=== PATIENT | female | born 1985 | race Caucasian/White ===

== ENCOUNTER 2020-01-15 21:32 | Emergency (ER) | payer OTHER, SELFPAY ==
[2020-01-15 21:34] VITALS: BP 174/97; PULSE 111; RESP 16; O2SAT 100; BMI 25.8
--- NOTE | 2020-01-15 21:40 | HMH.EDGENADL ---
ED Disposition Clinical Impression: Neuropraxia of left upper extremity Qualifiers: Encounter type: initial encounter Qualified Code(s): S44.92XA - Injury of unspecified nerve at shoulder and upper arm level, left arm, initial encounter Left shoulder strain Qualifiers: Encounter type: initial encounter Qualified Code(s): S46.912A - Strain of unspecified muscle, fascia and tendon at shoulder and upper arm level, left arm, initial encounter Disposition: Home, Self-Care Condition on Discharge: Good Instructions: DI for Shoulder Pain Additional Instructions: Follow-up with Dr. Rodriguez at [facility]. Call Friday to make appointment. Tramadol or acetaminophen as needed for pain. Ice for swelling and pain. Sling until follow-up. Additional instructions for CONTROLLED SUBSTANCES: You have been prescribed a medication that is a controlled substance. Controlled substances include pain medications known as opiates and sedative nerve medications known as benzodiazepines. Tramadol, fioricet, and gabapentin are also controlled substances. Some common opiates include: Codeine (such as Tylenol #3) Hydrocodone (Vicodin, Lortab, Lorcet, [place]) Oxycodone (Percocet, Percodan, Oxycodone, Oxy IR) Some common benzodiazepines include: Diazepam (Valium) Lorazepam (Ativan) Alprazolam (Xanax) Clonazepam (Klonopin) Oxazepam (Serax) All of these controlled substances are highly addictive and frequently abused. Misuse can and frequently does lead to addiction as well as overdose and . Medication should be stored in a locked cabinet or other secure storage unit. Do not store the medication in a motor vehicle. Short term supplies, 3 days or less, are prescribed because of the highly addictive nature of the medication. Any of the controlled substance medication NOT taken should be disposed of properly and NOT SAVED. The recommended method of disposing of unused medications is: Place the medicines in a sealable plastic bag. If the medicine is a solid, crush it or add water to dissolve it. Add something undesirable (cat litter, coffee grounds, etc.) Dispose of sealed bag in household trash Do not flush or pour unused medicines down a sink or drain. Controlled substances should not be shared, given away or sold. Because of the addictive nature and frequent abuse, these medications are sometimes stolen. These medications should be kept in a safe place where they cannot be stolen. Do not keep them in your car or purse. Lost or stolen prescriptions for controlled substances WILL NOT BE REFILLED in this emergency department, regardless of whether a police report was filed. Referrals: Olayinka Haley [Primary Care Provider] - - Critical Care Critical Care Time: No Attestation: On , the high probability of a clinically significant, sudden or life threatening deterioration of the following system(s) required my full and direct attention, intervention and personal management. The time I documented below is in addition to time spent performing reported procedures but includes the following listed in this critical care notation. Medical Decision Making - Carlito Inquiry Pt receiving controlled substance: Yes Carlito was queried for this patient: Yes Reference #:: [id number] Risks and benefits of using a controlled substance: were discussed with pt by me Comment: 11 rxs. all benzos. Vital Signs: 01/15/20 21:34 01/15/20 22:21 01/15/20 23:09 Temperature 98.5 F Temperature Source Oral Pulse Rate 86 Pulse Rate [Left Radial] 111 H 95 H Respiratory Rate 16 16 16 Blood Pressure 147/87 H Blood Pressure [Right Arm] 174/97 H 156/89 H Blood Pressure Mean [Right Arm] 122 111 Blood Pressure Source Automatic Cuff Blood Pressure Source [Right Arm] Automatic Cuff Automatic Cuff Blood Pressure Position Sitting Blood Pressure Position [Right Arm] Sitting Sitting 02 Sat by Pulse Oximetry 100 98 Oxygen Delivery Method
[2020-01-15 22:00] LABS: Microscopic, Urine URINE MICROSCOPIC (MICROSCOPIC)
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
--- NOTE | 2020-01-15 22:18 | PC.NURSE ---
called lab for result.
[2020-01-15 22:20] LABS: Appearance,Urine CLOUDY (Clear); Bilirubin,Urine Negative (Negative); Blood, Urine Negative (Negative); Color,Urine YELLOW (Yellow); Glucose,Urine (UA) Negative (Negative); Ketones,Urine Negative (Negative); Leukocyte Esterase,Urine Negative (Negative); Nitrate,Urine Negative (Negative); Protein,Urine Negative (Negative); Specific Gravity, Urine >= 1.030 (1.005-1.030); Urobilinogen,Urine 0.2 EU/dl (0.2)
[2020-01-15 22:21] VITALS: BP 156/89; PULSE 95; RESP 16; O2SAT 98
[2020-01-15 22:22] LABS: Squamous Epithelial Cell,Urine 20-50 #/hpf (0-5); Urine Pregnancy, HCG Qual. Negative (Negative)
--- NOTE | 2020-01-15 22:55 | PC.NURSE ---
Sling placed and fitted to pt's left shoulder
[2020-01-15 23:09] VITALS: BP 147/87; PULSE 86; RESP 16; TEMP 36.9; O2SAT 97
== END 2020-01-15 23:11 | disposition home or self-care (01) ==
PROVIDERS: Emergency Provider Emergency Medicine; PCP Family Medicine
DX: S46.912A Strain of unspecified muscle, fascia and tendon at shoulder and upper arm level, left arm, initial encounter (principal); M25.552 Pain in left hip; V49.3XXA Car occupant (driver) (passenger) injured in unspecified nontraffic accident, initial encounter; Y92.414 Local residential or business street as the place of occurrence of the external cause; I10 Essential (primary) hypertension; F41.9 Anxiety disorder, unspecified; K21.9 Gastro-esophageal reflux disease without esophagitis; F17.210 Nicotine dependence, cigarettes, uncomplicated; Z88.0 Allergy status to penicillin; Z88.2 Allergy status to sulfonamides; Z88.6 Allergy status to analgesic agent
CPT/HCPCS: 73030; 81001; 81025; 99282; 99283

== ENCOUNTER 2022-10-14 13:55 | Emergency (ER) | payer OTHER, SELFPAY ==
[2022-10-14 14:45] VITALS: BP 143/90; PULSE 69; RESP 17; TEMP 36.7; O2SAT 100; BMI 28.0
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
[2022-10-14 16:13] VITALS: BP 143/90; PULSE 69; RESP 17; TEMP 36.7
== END 2022-10-14 16:15 | disposition home or self-care (01) ==
PROVIDERS: Emergency Provider Nurse Practitioner; PCP Family Medicine
DX: S00.33XA Contusion of nose, initial encounter (principal); F17.210 Nicotine dependence, cigarettes, uncomplicated; W50.0XXA Accidental hit or strike by another person, initial encounter
CPT/HCPCS: 70160; 99212; 99213; G0463

== ENCOUNTER 2023-12-14 16:16 | Emergency (ER) | payer OTHER, SELFPAY ==
--- NOTE | 2023-12-14 16:20 | ED_ITS ---
<Statement entered by Franklin Caceres MD - 12/14/23 17:02> I was consulted by the HOSEA, and we discussed the complexity of the problems being addressed. I approved the treatment and management plan for this patient's care in the emergency department, thus performing a substantive portion of the medical decision making. Franklin Caceres MD Discharge Plan Disposition Patient Disposition: Home, Self-Care Prescriptions Prescriptions: New sulfamethoxazole-trimethoprim [Bactrim DS] 800-160 mg tablet 1 tab PO DAILY 7 Days Qty: 7 0RF No Action cephalexin 500 mg tablet 500 mg PO BID Qty: 20 0RF metoprolol tartrate 100 mg tablet 100 mg PO BID omeprazole 40 mg capsule,delayed release(DR/EC) 40 mg PO DAILY prazosin 1 mg capsule 1 mg PO QHS cephalexin [Keflex] 500 mg capsule 500 mg PO BID 10 Days Qty: 20 0RF benzonatate 100 mg capsule 100 mg PO BID PRN (Reason: cough) Qty: 14 0RF hydrochlorothiazide 25 MG tablet 1 tab .Route DAILY Patient Comments: TAKE 1 TAB BY MOUTH DAILY. diazepam 5 MG tablet 5 mg .Route DAILY Patient Comments: TAKE 1 TABLET BY MOUTH EVERY 12 HOURS NEEDED Referrals Follow up/Referrals: Sherly Gibson DPM [Staff Physician] - See instructions Olayinka Haley [Primary Care Provider] - See instructions Activity Restrictions/Add. Instructions Additional Instructions/Restrictions: At this time it was felt you are safe to be discharged home. If new or worsening symptoms please do not hesitate to return the emergency department. Please call and schedule appoint with Dr. Gibson as soon as you are able. Clinical Impressions Clinical Impression: Acute paronychia of toe of right foot, Phlebitis Instructions Patient Instructions: DI for Skin Abscess Discharge ED Provider: Franklin Caceres General Adult HPI General Chief complaint: Skin/Abscess/Foreign Body Stated complaint: Infected great toe left foot Time Seen by Provider: 12/14/23 16:20 History of Present Illness HPI narrative: Patient presents for a left toe infection. Patient reports that she was cutting her nails and may have cut the skin. Over the last 24 hours she has noticed increased redness and yellowish drainage. Patient reports significant pain with standing however it hurts all the time. Related Data Home Medications Medication Instructions Recorded Confirmed diazepam 5 mg tablet 5 mg .Route DAILY Anxiety 01/25/18 02/06/19 hydrochlorothiazide 25 mg tablet 1 tab .Route DAILY Hypertension 01/25/18 02/06/19 metoprolol tartrate 100 mg tablet 100 mg PO BID 10/31/18 02/06/19 omeprazole 40 mg capsule,delayed 40 mg PO DAILY 10/31/18 02/06/19 release prazosin 1 mg capsule 1 mg PO QHS 10/31/18 02/06/19 Previous Rx's Medication Instructions Recorded benzonatate 100 mg capsule 100 mg PO BID PRN cough #14 caps 02/06/19 cephalexin 500 mg capsule (Keflex) 500 mg PO BID 10 days #20 caps 02/06/19 cephalexin 500 mg tablet 500 mg PO BID abscess #20 tabs 06/28/19 sulfamethoxazole 800 1 tab PO DAILY infection of foot 7 12/14/23 mg-trimethoprim 160 mg tablet days #7 tabs (Bactrim DS) Allergies Allergy/AdvReac Type Severity Reaction Status Date / Time adhesive Allergy Unknown I-RASH Verified 02/06/19 13:06 methylprednisolone Allergy Unknown ANAPHYLAXIS Verified 02/06/19 13:06 [From DEPO-MEDROL] morphine Allergy Unknown I-HIVES Verified 02/06/19 13:06 NSAIDS (Non-Steroidal Allergy Unknown I-HIVES Verified 02/06/19 13:06 Anti-Inflamma Penicillins Allergy Unknown I-HIVES, Verified 02/06/19 13:06 SOA promethazine Allergy Unknown I-HIVES Verified 02/06/19 13:06 [facility] Disclaimer: The information contained in this section may have been updated after the patient was seen, as this information can be updated by other users. Social History Smoking Status: Current every day smoker tobacco type: cigarettes packs per day: 1 second hand exposure: Yes alcohol intake: never substance use type: denies use current occupational status: employed Travel in the last 8 weeks: None household members: family housing: house caffeine: Yes ROS Obtained: Yes Systems reviewed as appropriate & no additional complaints except as documented Physical Exam General General appearance: alert and in no apparent distress Respiratory Respiratory exam: Present normal lung sounds bilaterally Cardiovascular Cardiovascular exam: Present regular rate Neurological Exam Neurological exam: Present alert and oriented X3 Other Other exam information: Patient has a developing periungual abscess in the medial aspect of her left great toe with developing lymphangitis and the borders are marked by myself. No obvious discrete abscess visible. The remainder of her skin exams pink warm and dry Medical Decision Making Carlito Inquiry Pt receiving controlled substance: No Vital Signs: 12/14/23 16:28 12/14/23 16:31 12/14/23 16:39 Temperature 97.9 F Temperature Source Oral Pulse Rate 82 76 Pulse Rate [Left Radial] 84 Respiratory Rate 18 Blood Pressure 201/137 H 164/97 H Blood Pressure [Right Arm] 182/127 H Blood Pressure Mean [Right Arm] 145 Blood Pressure Source Blood Pressure Source [Right Arm] Automatic Cuff Blood Pressure Position Blood Pressure Position [Right Arm] Sitting 02 Sat by Pulse Oximetry 100 99 100 Oxygen Delivery Method Room Air Room Air 12/14/23 16:53 Temperature 97.9 F Temperature Source Oral Pulse Rate 86 Pulse Rate [Left Radial] Respiratory Rate 18 Blood Pressure 164/97 H Blood Pressure [Right Arm] Blood Pressure Mean [Right Arm] Blood Pressure Source Automatic Cuff Blood Pressure Source [Right Arm] Blood Pressure Position Sitting Blood Pressure Position [Right Arm] 02 Sat by Pulse Oximetry Oxygen Delivery Method Room Air Orders (Tests/Meds): ED MEDICATIONS Discontinued Medications Generic Name Dose Route Start Last Admin Trade Name Freq PRN Reason Stop Dose Admin Clindamycin HCl 450 mg 12/14/23 16:35 12/14/23 16:43 Clindamycin 150mg Capsule PO 12/14/23 16:36 Not Given ONCE ONE Lidocaine HCl 10 ml 12/14/23 16:28 12/14/23 16:34 Lidocaine 1% 10ml Mdv SQ 12/14/23 16:29 10 ml ONCE ONE Administration Trimethoprim/Sulfamethoxazole 1 each 12/14/23 16:41 12/14/23 16:49 Sulfa/Trimethoprim 1 Tablet PO 12/14/23 16:42 1 each ONCE ONE Administration Medical Decision Narrative: In summary patient is a 38-year-old female who presents to the emergency department for evaluation of left toe infection. Patient is hypertensive but with normal heart rate and otherwise hemodynamically stable upon arrival, afebrile. Physical exam is remarkable for honey crusted lesion at the medial aspect of skin and nail of the hallux. Patient has developing lymphangitis noted and the borders were marked by myself with an ink pen. Differential diagnosis includes cellulitis versus periungual abscess versus ingrown toenail. Initial interventions include digital block and exploration. After sterile prep and drape an incision and drainage was performed after digital block. Scant pus was found. Nail edge is actually underneath the cuticle. Cuticle resected at the leading edge to allow room for the nail to advance. Will refer to Dr. Gibson for follow-up. Procedures Abscess I/D Site: other (Left great toe) Side (if applicable): left Sedation/analgesia: none Local Anesthetic: lidocaine 1% Amount of anesthesia used (mL): 10 Technique: incised with #11 blade Amount of fluid expressed (mL): 0.5 Irrigation: Yes Packing used?: none Critical Care Critical Care Time Critical Care Time: No
--- OUTSIDE RECORDS SUMMARY | 2023-12-14 16:23 | XMS_ITS | Continuity of Care Document ---
Author Name Unknown Organization [facility] o Address [address] [place] [address] Phone Care Team Providers Care Customs House Broker Name Role Phone Deon Dickey MD Unavailable Unavailable Allergies, Adverse Reactions, Alerts Substance Reaction Status Criticality Penicillins DifficultyBreathing, Coughing, H Active No Information morphine DifficultyBreathing, Coughing, H Active No Information aspirin Hives, Rash Active No Information Procedures Procedure Date Office/outpatient visit,[facility], [facility] 2022 X-ray exam of neck spine, 4+ views X-ray exam of shoulder, complete 2022 Advance Directives Directive Yes / No Effective Date File Name No Information Encounters Encounter Description Practice Location Reason(s) For Visit Diagnoses Date Provider Providers Copied on Encounter Office/outpat ient visit,, [facility], [address] [facility] [place], [address], tel:[phone] 00 [facility] Pain in right shoulder Noble Chavarria. [address] [place], [id number] , [place]. tel:[phone] Referring Provider: Deon Kulkarni, [place], [address] . tel:[phone] Family History Family Member Type Diagnosis Age At Onset Father Problem (finding) Family history of Spine Disorder Father Problem (finding) Family history of Osteo arthritis Father Problem (finding) Hypertension Father Problem (finding) Cancer Father Problem (finding) Congenital heart diseas e Father Problem (finding) Family history of Scoli osis Mother Problem (finding) Thyroid disorder Mother Problem (finding) Family history of Hyper lipidemia Mother Problem (finding) Hypertension Mother Problem (finding) Diabetes mellitus Mother Problem (finding) Cancer Payers Payer name Insurance type Covered democrat ID Coleman poe(sAdriano Mathis Of [place] Medicaid - [id number] 1 Social History Type Description Quantity Date Captured Comments Alcohol Use Details No Caffeine Use Details Unknown Tobacco Use Status Smoking Status Former smoker Sex Female Vital Signs Date / Time: Height Weight BMI Pulse Rate Blood Pressure Temperature Respiratory Rate Body Surface Area Head Circumference Head Circ. Percentile Wt./Brooks. Percentile BMI percentile Pulse Ox Inhaled Ox 3:03 PM 68.00 in 88.450 kg (195.00 lbs) 29.6 5 kg/m eter (2) Chief Complaint And Reason For Visit No Information Reason For Referral Reason For Referral No Information History Of Present Illness Encounter Date Complaint History Of Prese nt Illness shoulder Functional Status Date Functional Assessmen t No Information Instructions Date Instruction Additional Infor mation No Information Assessments Type Assessment Date No Information Patient Care Teams Name Effective Dates (start - stop) Status Members No Information
--- OUTSIDE RECORDS SUMMARY | 2023-12-14 16:23 | XMS_ITS | Continuity of Care Document ---
Author Name Unknown Organization [facility] Address [address] [place] [address] Phone Care Team Providers Care Car Dropper Name Role Phone Charlie Li MD Unavailable Unavailable Allergies, Adverse Reactions, Alerts Substance Reaction Status Criticality trimethoprim Active No Information sulfamethoxazole Active No Informat ion NSAIDS (Non-Steroidal Anti-Inflammatory Drug) Active No Information Penicillins Active No Information morphine Active No Information Medications Medication Instructions Dosage Effective Dates (start - stop) Status Comments levofloxacin 0.5 % eye drops instill 1 drop by ophthalmic route every hour into right eye - Active methocarbamol 750 mg tablet take 1 tablet by oral route 4 times every day 750 MG - Active metoprolol tartrate 25 mg tablet take 1 tablet by oral route 2 times every day 25 MG - Active hydrochlorothiazide 25 mg tablet take 1 tablet by oral route every day 25 MG - Active ferrous sulfate 325 mg (65 mg iron) tablet take 1 Tablet by Oral route every day 1 Tablet - Active clonazepam 0.5 mg tablet take 1 tablet b y oral route 2 times every day 0.5 MG - Active Percocet 5 mg-325 mg tablet take 1 tablet by oral route every 4 - 6 hours as needed 1 tablet - Active gabapentin 300 mg capsule take 1 capsule by oral route 3 times every day 300 MG - Active Procedures Procedure Date OFFICE/OUTPATIENT VISIT, NEW Advance Directives Directive Yes / No Effective Date File Name No Information Encounters Encounter Description Practice Location Reason(s) For Visit Diagnoses Date Provider Providers Copied on Encounter [facility] , [address] [place], [address], tel:[phone] [facility] No Information Jen Guerra. [address] [place] [address], [address], [place], [place], [id number], [place]. tel:[phone] OFFICE/OUTPATI ENT VISIT, [facility] , [address] [facility], [place], [address], [place] tel:[phone] [facility] pain, light sensitivity , blurry vision (chief complaint) Corneal abrasion w/o FB of right eye, initial encounter Jen Guerra. [address], [address], [place], [place], [id number], [place]. tel:[phone] Referring Provider: No Ref Doc No Referring Doc. Family History Family Member Type Diagnosis Age At Onset Mother Problem (finding) Maternal history of nadeem betes mellitus Problem (finding) No family history of Gl [place] Problem (finding) No family history of Re tinal disease Mother Problem (finding) Cancer, unknown Father Problem (finding) hypertension Problem (finding) No family history of Ca taracts Payers Payer name Insurance type Covered libertarian ID Authortorria tiaaron(s) Delfina [facility] [id number] 1 Social History Type Description Quantity Date Captured Comments Sex Female Smoking Status No Information Chief Complaint And Reason For Visit No Information Reason For Referral Reason For Referral No Information History Of Present Illness Encounter Date Complaint History Of Prese nt Illness pain, light sensitiv ity, blurry vision The 30 year old female presents for evaluation of pain, light sensitivity, blurry vision in the right eye. It started about 1 day(s) ago. The onset was sudden. It happens all of the time. The patient feels it is severe. Patient states she has worn her soft contact lenses day and night for a couple months . She states yesterday morning her right eye was bothersome. She took out the contact lens and it ripped. Her eye became swollen and had a lot of discharge.She states she went to the ER yesterday and was told she had a corneal cyst . Was started on Levofloxacin Q1H OD. Her right eye has improved slightly since started the drops yesterday. Functional Status Date Functional Assessmen t No Information Instructions Date Instruction Additional Infor matthew - CL overwear. Fine horizontal abrasion mid. No infiltrate. Levofloxacin qid, Bandage soft cl placed. Return 5 days or call prn. Related to See impression details - Return - 5 days Related to See impression details Assessments Type Assessment Date No Information Patient Care Teams Name Effective Dates (start - stop) Status Members No Information
[2023-12-14 16:28] VITALS: BP 182/127; PULSE 84; RESP 18; TEMP 36.6; O2SAT 100; BMI 29.9
[2023-12-14 16:31] VITALS: BP 201/137; PULSE 82; O2SAT 99
[2023-12-14] MEDS: LIDOCAINE 1% 10ML MDV 10 ML SQ (16:34)
[2023-12-14 16:39] VITALS: BP 164/97; PULSE 76; O2SAT 100
--- NOTE | 2023-12-14 16:45 | PC.NURSE ---
pt reports she is not allergic to bactrim, that she has had it before, and had no reaction. pt is unsure why this is listed as an allergy on her chart, as well as erythromycin. these allergied removed from her chart.
[2023-12-14] MEDS: SULFA/TRIMETHOPRIM 1 TABLET 1 EACH PO (16:49)
[2023-12-14 16:53] VITALS: BP 164/97; PULSE 86; RESP 18; TEMP 36.6; O2SAT 97
== END 2023-12-14 17:01 | disposition home or self-care (01) ==
PROVIDERS: Emergency Provider Emergency Medicine; PCP Family Medicine
DX: L03.032 Cellulitis of left toe (principal); I80.9 Phlebitis and thrombophlebitis of unspecified site; F17.210 Nicotine dependence, cigarettes, uncomplicated
CPT/HCPCS: 10060; 99283